=== PATIENT | male | born 1980 | race Caucasian/White ===

== ENCOUNTER 2018-09-09 02:23 | Inpatient (IN) ==
[2018-09-09] MEDS ORDERED: ZOFRAN IV ONE (03:23)
[2018-09-09] MEDS ORDERED: DILAUDID IV ONE (03:23)
[2018-09-09] MEDS ORDERED: NS 1,000 ML IV ONE ×2 (03:23→06:22)
--- NOTE | 2018-09-09 03:32 | PROVIDER DOCUMENTATION ---
HPI-Abdominal Pain/GI Problem - General Chief Complaint: Abdominal Pain Stated Complaint: HERNIA Time Seen by Provider: 09/09/18 02:51 Source: patient (painful RIH out x 3hr and large and painful. usually able to reduce this longstanding recurent hernia within 1/2 - 1 hr but not tonight.pain is mod severe, nausea w/o vomiting. last meal11 1/2 hr ago, smoker until 1 month ago. only health problem is CP affecting left arm and leg. last alcohol engestion 6 hr ago.) Allergies/Adverse Reactions: Patient Allergies Allergy/AdvReac Type Severity Reaction Status Date / Time No Known Allergies Allergy Verified 09/09/18 02:44 Home Medications: Home Medication List Medication Instructions Recorded Confirmed Last Taken Type NK [No Home Medications] 09/09/18 09/09/18 Unknown History Review of Systems - Adult - REVIEW OF SYSTEMS - ADULT Constitutional: reports: no symptoms reported Eyes: reports: no symptoms reported Ears, Nose, Mouth & Throat: reports: no symptoms reported Cardiovascular: reports: no symptoms reported Respiratory: reports: no symptoms reported Gastrointestinal: reports: see HPI, nausea. denies: diarrhea, vomiting Genitourinary: reports: no symptoms reported Musculoskeletal: reports: no symptoms reported Integumentary: reports: no symptoms reported Neurological: reports: no symptoms reported Psychiatric: reports: no symptoms reported Endocrine: reports: no symptoms reported Hematologic/Lymphatic: reports: no symptoms reported Allergic/Immunologic: reports: no symptoms reported All Other Systems: Reviewed and Negative Past History - Adult - PAST MEDICAL HISTORY-ADULT Review of Records: reports: Old Records Reviewed, Nursing Assessment Review, Medications Reviewed, Social history reviewed & non-contributory. Major Childhood Illnesses: reports: denies history Cardiovascular: reports: denies history Respiratory: reports: denies history Gastrointestinal: reports: denies history Obstetrical/Gynecological: reports: denies history Genitourinary: reports: denies history Musculoskeletal: reports: denies history Neurological: reports: other (CP affecting use of left arm and leg) Endocrine/Immune: reports: denies history Other Conditions: reports: denies history Physical Exam-General - PHYSICAL EXAM-ADULT Initial Vital Signs Reviewed: Yes - CONSTITUTIONAL General Appearance: appears well, mild distress - EYES Eyes: PERRL/EOMI, pink conjunctivae - HEAD, EARS, NOSE, MOUTH & THROAT HENMT: normocephalic/atraumatic, moist mucous membranes - NECK Neck: non-tender, full range of motion, supple - RESPIRATORY Respiratory: lungs clear, normal breath sounds - CARDIOVASCULAR Cardiovascular: regular rate, rhythm, no edema, no murmur - GASTROINTESTINAL (ABDOMEN) Abdominal Exam: soft, abnormal bowel sounds (decreased), other (large RIH not reduced w/ steady gentle presure x 10 min). negative: guarding, rigid - MUSCULOSKELETAL Extremity: other (decreased use, strength , coordination left upper and lower extremities) - SKIN Integumentary: normal color, normal turgor, warm/dry - NEUROLOGIC Neurologic: associate sales II-XII nml as tested - PSYCHIATRIC Psych/Mental Status: normal mood/affect, normal thought content, normal thought process, oriented x 3 Progress - PLAN OF CARE/RESULTS Progress/Plan/Lab Results: Vital Signs - 8 hr 09/09/18 02:28 Temperature 98.0 F Pulse Rate 90 Respiratory Rate 16 Blood Pressure 136/92 O2 Sat by Pulse Oximetry 95 Orders Category Date Time Status ALCOHOL BLOOD Stat Lab 09/09/18 03:26 Uncollected BMP [BASIC METABOLIC PANEL] [CHEM] Stat Lab 09/09/18 03:26 Uncollected CBC WITH ELECTRONIC DIFF [HEME] Stat Lab 09/09/18 03:25 Uncollected LACTATE, PLASMA [CHEM] Stat Lab 09/09/18 03:25 Uncollected URINALYSIS W/POSS RFLX CULT [URINALYSIS] Stat Lab 09/09/18 03:25 Uncollected 0.9% Sodium Chloride Inj [Ns] 1,000 ml Med 09/09/18 03:23 Ordered IV 125 mls/hr Hydromorphone [Dilaudid] Med 09/09/18 03:23 Once 0.5 mg IV NOW ONE Ondansetron [Zofran] Med 09/09/18 03:23 Once 4 mg IV NOW ONE Result Diagrams: 09/09/18 03:38 09/09/18 03:38 - REASSESSMENT Reassessment #1 Time Reassessed: 04:30 Status: unchanged (second attempt to reduce RIH unsuccessful 30 min after dilaudid given.) - XRAY 1 XRAY Study: Abdomen (dialated bouwel, no free air) Impression: Abnormal - CONSULTS/PCP/HOSPITALIST Notification #1 *Consult/PCP/Hospitalist*: dr Velasco Time Discussed: 04:14 Consult Disposition: Admit Departure - Departure Date of Disposition Decision: 09/09/18 Time of Disposition Decision: 04:32 DIAGNOSIS: Incarcerated right inguinal hernia Disposition: ADMITTED INPATIENT 09 Certified Medical Emergency: Emergent Condition: Stable - Critical Care Note This patient required my direct & personal management of CC.: No Attestation - Physician/ DORIS Attestation Patient care was provided by Advanced Practice Provider:: No The physician spent face to face time with patient:: Yes Advanced Practice Provider documentation review:: Supervising physician onsite and consulted in the evaluation and care of this patient. The physician did have a face to face encounter with the patient.
[2018-09-09 03:54] LABS: BASO# 0.07 X1000 (0.0-0.2); BASO% 0.8 % (0.0-0.8); EOS# 0.24 X1000 (0.0-0.7); EOS% 2.7 % (0.0-10.0); HEMATOCRIT 46.8 % (42.0-52.0); HEMOGLOBIN 15.6 g/dL (14.0-18.0); LYMPH# 2.68 X1000 (1.2-3.4); LYMPH% 30.5 % (20.5-51.1); MCH 32.2 PG (27-31); MCHC 33.3 g/dL (33-37); MCV 96.7 FL (81-99); MONO# 0.58 X1000 (0.11-0.59); MONO% 6.6 % (1.7-9.3); NEUT# 5.21 X1000 (1.4-6.5); NEUT% 59.4 % (42.2-75.2); PLT 339 X1000 (130-400); RBC 4.84 XMIL (4.7-6.1); RDW 15.7 % (11.5-14.5); WBC 8.78 X1000 (4.8-10.8)
[2018-09-09 04:06] LABS: AGAP 14; BUN 12 mg/dL (8-22); CALCIUM 7.9 mg/dL (8.8-10.2); CHLORIDE 108 mmol/L (98-107); COSMO 293; CREATININE 0.9 mg/dL (0.7-1.2); ESTIMATED GFR > 60; GLUCOSE 122 mg/dL (70-104); POTASSIUM 3.8 mmol/L (3.5-5.1); SODIUM 147 mmol/L (136-145); TCO2 25 mmol/L (25-35)
[2018-09-09] MEDS ORDERED: ZOFRAN IV PRN (06:22)
--- NOTE | 2018-09-09 06:24 | Diag Imaging Result Doc PS360 ---
FLAT/UPRIGHT ABD/1 VIEW CHEST - 09/09/2018 INDICATION: incarcerated RIH TECHNIQUE: COMPARISON: None FINDINGS: The chest is clear. There is a nonobstructive bowel gas pattern. No free air or abnormal calcifications. IMPRESSION: Negative exam. Electronically signed by Praful Kinsey 09/09/2018 6:21 AM
--- NOTE | 2018-09-09 07:00 | HISTORY AND PHYSICAL ---
Mr. 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 He has had a right inguinal hernia for at least 12 years. He works here at [employer] here locally and presented to our emergency department overnight with increasing pain involving a large right inguinal hernia. This hernia is incarcerated and he was admitted for repair. MEDICATIONS: None. ALLERGIES: None. SOCIAL HISTORY: He is a smoker. He works at [employer] here in [place]. REVIEW OF SYSTEMS: A 14-point review of systems was performed and was essentially negative except for the history of present illness. FAMILY HISTORY: Noncontributory. PHYSICAL EXAMINATION: GENERAL: Mr. Grady is a healthy appearing overweight white male in no acute distress. VITAL SIGNS: His temperature is 98 degrees, pulse is 90, blood pressure is 136/92, O2 saturation 95%. GENERAL APPEARANCE: He wears a travis. He is in no acute distress. He has no jaundice. No oral lesions. No cervical or supraclavicular lymphadenopathy. HEART: Regular rate. LUNGS: Clear to auscultation and percussion bilaterally. ABDOMEN: Soft. He has a incarcerated large right inguinal hernia that extends down into his scrotum. No evidence of left inguinal hernia. RECTAL: Examination was not performed. EXTREMITIES: He does have palpable peripheral pulses. No peripheral edema. NEUROLOGICAL: He is alert and oriented x3 and appropriate. LABORATORY DATA: His white blood cell count was normal. Hematocrit is 46%. Electrolytes are within normal limits. IMPRESSION: Large chronic right inguinal hernia incarcerated. PLAN: Right inguinal hernia repair using mesh. Anterior approach versus a robotic assisted laparoscopic approach. I have discussed the procedure in detail with the patient including risks of bleeding, infection, recurrent hernia, chronic pain. We discussed the use of mesh and its risks. He understands it is a foreign body and can become infected and need to be removed. He understands that he will have significant swelling after hernia repair because of how large his hernia is. He wants to proceed. cc: Nisha Velasco MD
[2018-09-09] MEDS: MORPHINE IV PRN ×5 (09:30→22:31)
[2018-09-09] MEDS ORDERED: DIPRIVAN 1% ONE (12:35)
[2018-09-09] MEDS ORDERED: XYLOCAINE-MPF 2% ONE (12:36)
[2018-09-09] MEDS ORDERED: QUELICIN (DOSE) ONE (12:36)
[2018-09-09] MEDS ORDERED: SODIUM CHLORIDE 0.9% 10 ML ONE (12:37)
[2018-09-09] MEDS ORDERED: NORCURON ONE (12:37)
[2018-09-09] MEDS ORDERED: SENSORCAINE-MPF 0.5%/EPI 1:200,000 ONE (13:09)
[2018-09-09] MEDS ORDERED: KEFZOL 2 GM/D5W 2 GM/50 ML IVPB ONE (14:03)
[2018-09-09] MEDS ORDERED: VERSED ONE (14:08)
[2018-09-09] MEDS ORDERED: ZOFRAN ONE ×2 (14:16→16:46)
[2018-09-09] MEDS ORDERED: DECADRON ONE (14:16)
[2018-09-09] MEDS ORDERED: TORADOL ONE (14:16)
[2018-09-09] MEDS ORDERED: FENTANYL ONE ×2 (14:29→15:15)
[2018-09-09] MEDS ORDERED: NEOSTIGMINE ONE (15:36)
[2018-09-09] MEDS ORDERED: ROBINUL ONE (15:36)
[2018-09-09] MEDS: DILAUDID ONE ×4 (16:09→16:35)
[2018-09-09] MEDS ORDERED: LR 1,000 ML ONE (16:32)
[2018-09-09] MEDS ORDERED: APRESOLINE IV ONE (16:38)
[2018-09-09] MEDS ORDERED: LABETALOL IV ONE (16:38)
[2018-09-09] MEDS ORDERED: APRESOLINE ONE (16:39)
--- NOTE | 2018-09-09 17:16 | OPERATIVE NOTE ---
PROCEDURE DATE: 09/09/2018 PREOPERATIVE DIAGNOSIS: Large incarcerated right inguinal hernia. POSTOPERATIVE DIAGNOSIS: Large incarcerated right indirect inguinal hernia. PRINCIPAL PROCEDURE: Open anterior repair using mesh (Zee repair) of large right indirect inguinal hernia. SURGEON: Nisha Velasco MD. DRIVER LICENSE EXAMINER: Isrrael Castillo MD. ANESTHESIA: General. ESTIMATED BLOOD LOSS: 50 mL. DRAINS: None. INDICATIONS: Mr. Archie Grady is a 38-year-old, overweight, white male who has had a history of a right inguinal hernia for about 14 years. It has gotten big, involving his entire right groin and extending down into his scrotum. He presented to our emergency department last night because of increasing pain. It could not be reduced and we were asked to evaluate him. FINDINGS: He had a large hernia that involved the entire floor of the inguinal canal and extended down into the scrotum. It contained mostly omentum. It was incarcerated. We were able to reduce the hernia contents. We reinforced the floor of the inguinal canal and then we used mesh in a Zee repair. DESCRIPTION OF PROCEDURE: The patient was brought to the operating room, placed supine, received general anesthesia, was intubated. His right groin, penis, and scrotum were all prepped and draped within a sterile field. We did place a Gordon catheter tube. He received Ancef prophylactically. I made an oblique incision beginning at the right pubic tubercle and extending laterally with a 15 blade scalpel. This incision was carried down through the skin and subcutaneous tissue to the external oblique fascia. We incised the external oblique fascia laterally and then forceps and scissors were used to incise the external oblique through the external ring. We mobilized the external oblique inferiorly to the inguinal ligament and superiorly. We were able to reduce all the hernia contents and then we used forceps and blunt dissection to identify the hernia sac and we peeled it off the spermatic cord and its contents. We peeled it back to the indirect inguinal defect. We then placed all this tissue in the preperitoneal space. I reinforced the floor of the inguinal canal with interrupted 2-0 Vicryl stitches where we imbricated the floor by taking these stitches in the internal oblique and transversalis fascia both inferiorly along the inguinal ligament and then superiorly. We then reinforced this initial repair with mesh. We used soft Bard mesh, 4 x 6 inches. We fashioned it to cover the floor of the inguinal canal. We made sure that this mesh extended medial to the right pubic tubercle and around the internal ring. We secured it inferiorly with a running 2-0 Prolene stitch to the inguinal ligament. We secured it medially and superiorly with interrupted simple 2-0 Prolene stitches to the internal oblique and transversalis fascia and muscle. We made sure that the mesh encircled the internal ring and we secured the mesh lateral to the internal ring to the inguinal ligament. We were happy the way the mesh covered the floor of the inguinal canal. The spermatic cord and its contents were placed superficial to the mesh. We made sure that the right testicle was back in his scrotum. We thoroughly irrigated the wound and then reapproximated the internal oblique with a running 2-0 Vicryl stitch. Skin was closed with a skin clip microbiological analyst. It must be noted that Dr. Isrrael Castillo was present throughout the case. His presence was necessary for help identifying the anatomy in the dissection of the large indirect hernia sac. I also needed his help with retraction and exposure. cc: Nisha Velasco MD
[2018-09-09] MEDS ORDERED: PHENERGAN IV PRN (17:31)
[2018-09-09] MEDS ORDERED: SODIUM CHLORIDE 0.9% INJ PRN (17:45)
[2018-09-09] MEDS ORDERED: LR 1,000 ML IV SCH (18:00)
[2018-09-09] MEDS: TORADOL IV PRN (19:51)
[2018-09-10] MEDS: TORADOL IV PRN (01:56)
[2018-09-10] MEDS: MORPHINE IV PRN ×4 (02:32→16:47)
[2018-09-10 03:09] LABS: URINE SOURCE CLEAN CATCH
[2018-09-10 03:13] LABS: BILIRUBIN URINE NEGATIVE (NEGATIVE); BLOOD URINE MODERATE (NEGATIVE); COLOR YELLOW; GLUCOSE URINE NEGATIVE (NEGATIVE); KETONE URINE NEGATIVE (NEGATIVE); LEUKOCYTES URINE NEGATIVE (NEGATIVE); NITRITE URINE NEGATIVE (NEGATIVE); PROTEIN URINE TRACE mg/dL (NEGATIVE); SP GRAVITY URINE 1.023; TURBIDITY URINE CLEAR (CLEAR); UROBILINOGEN URINE NORMAL (NORMAL)
[2018-09-10 03:15] LABS: UR EPITHELIAL CELLS <10 /HPF (<10); URINE BACTERIA NEGATIVE /HPF; URINE RBC TNTC /HPF (<10); URINE WBC <10 /HPF (<10)
--- NOTE | 2018-09-10 08:11 | PROGRESS NOTE ---
DATE: 09/10/2018 Mr. Archie Grady is a 38-year-old overweight, white male who had a large right inguinal hernia which we repaired using an anterior approach with mesh yesterday. This morning he is quite sore. He also lives alone. We are going to allow him to move around and see if he can tolerate a regular diet prior to discharge. cc: Nisha Velasco MD
[2018-09-10] MEDS: TORADOL PO PRN ×2 (09:16→20:53)
[2018-09-10] MEDS: COLACE PO SCH ×2 (09:16→20:53)
[2018-09-10] MEDS: PERIDEX MT SCH ×2 (09:16→20:54)
[2018-09-10] MEDS: NORCO-10 PO PRN (20:53)
[2018-09-11] MEDS: MORPHINE IV PRN (01:41)
[2018-09-11] MEDS: NORCO-10 PO PRN ×2 (04:03→12:56)
[2018-09-11] MEDS: PERIDEX MT SCH (08:44)
[2018-09-11] MEDS: COLACE PO SCH (08:44)
[2018-09-11] MEDS: TORADOL PO PRN (08:48)
[2018-09-11 11:26] VITALS: BP 149/97
--- NOTE | 2018-09-11 17:58 | GENERAL SURGERY PROGRESS NOTE ---
DATE: 09/11/2018 It is 2:40 p.m. He is doing generally well. He has been taking p.o. intake satisfactory, is passing his urine satisfactorily. He is afebrile. PLAN: Will be to discharge him today. He will return to see Dr. Velasco in 9 days for reevaluation. Wound care has been discussed. Will write him a prescription for pain medicine. cc: MD Nisha Morales MD
== END 2018-09-11 16:22 | disposition home or self-care (01) | DRG 352 ==
LOC: ED 02:23 → 4N 02:23 → OPS 05:39
PROVIDERS: ADMIT Surgery; ATTEND Surgery
CPT/HCPCS: 74022; 80048; 80307; 80320; 81001; 82055; 83605; 85025; 94760; 94761; 94799; 96374; 99284; A9270; C1781; G0480; G6040; J0330; J0360; J0690; J1100; J1170; J1885; J2250; J2270; J2405; J3010; J7030; J7120